=== PATIENT | female | born 1995 | race Two or more races ===

== ENCOUNTER 2017-11-29 20:59 | Emergency (ER) | payer OTHER ==
[2017-11-29 21:34] LABS: BILIRUBIN,URINE NEGATIVE (NEG); CLARITY,URINE CLEAR; COLOR,URINE YELLOW; GLUCOSE,URINE NEGATIVE (NEG); NITRITE,URINE NEGATIVE (NEG); PH,URINE 7.5; PROTEIN,URINE NEGATIVE (NEG-TRACE)
[2017-11-29 21:36] LABS: URINE HCG POC HCG NEGATIVE (Negative)
[2017-11-29 21:40] LABS: BACTERIA,URINE MODERATE /HPF (0-FEW); RBC,URINE 0 /HPF (0-2); SQUAMOUS EPITHELIAL CELL,UR FEW /LPF; WBC,URINE OCC /HPF (0-4)
[2017-11-29 21:41] LABS: AMPHETAMINE/METHAMPHETAMINE NEG (NEG); BARBITURATES NEG (NEG); BENZODIAZEPINES NEG (NEG); CANNABINOIDS NEG (NEG); COCAINE NEG (NEG); ETHANOL, URINE NEG (NEG); METHADONE NEG (NEG); OPIATES NEG (NEG); PHENCYCLIDINE NEG (NEG)
[2017-11-29 21:52] LABS: ADD MAN DIFF? NO; BASO # 0.1 x10^3/uL (0.0-0.2); BASO % 1 % (0-3); EOS # 0.1 x10^3/uL (0.0-0.7); EOS % 1 % (0-3); HEMATOCRIT 38.7 % (36.0-47.0); HEMOGLOBIN 12.7 g/dL (12.0-15.5); LYMPH # 2.2 x10^3/uL (1.0-4.8); LYMPH % 27 % (24-48); MEAN CORPUSCULAR HEMOGLOBIN 28 pg (25-35); MEAN CORPUSCULAR HGB CONC 33 g/dL (31-37); MEAN CORPUSCULAR VOLUME 86 fL (79-100); MONO # 0.5 x10^3/uL (0.0-1.1); MONO % 6 % (0-9); NEUT # 5.3 x10^3uL (1.8-7.7); NEUT % 65 % (31-73); PLATELET COUNT 264 x10^3/uL (140-400); RED BLOOD COUNT 4.49 x10^6/uL (3.50-5.40); RED CELL DISTRIBUTION WIDTH 13.2 % (11.5-14.5); WHITE BLOOD COUNT 8.1 x10^3/uL (4.0-11.0)
[2017-11-29 22:07] LABS: ANION GAP 7 (6-14); BLOOD UREA NITROGEN 9 mg/dL (7-20); BUN/CREATININE RATIO 11 (6-20); CALCIUM 8.7 mg/dL (8.5-10.1); CARBON DIOXIDE 27 mmol/L (21-32); CHLORIDE 105 mmol/L (98-107); CREATININE 0.8 mg/dL (0.6-1.0); GFR 91.4; GLUCOSE 82 mg/dL (70-99); POTASSIUM 3.4 mmol/L (3.5-5.1); SODIUM 139 mmol/L (136-145)
[2017-11-29 22:08] LABS: ETHANOL < 10 mg/dL (0-10)
[2017-11-29 22:11] LABS: ALBUMIN 3.6 g/dL (3.4-5.0); ALBUMIN/GLOBULIN RATIO 1.1 (1.0-1.7); ALK PHOS 48 U/L (46-116); ALT (SGPT) 18 U/L (14-59); AST (SGOT) 15 U/L (15-37); TOTAL BILIRUBIN 0.5 mg/dL (0.2-1.0); TOTAL PROTEIN 6.8 g/dL (6.4-8.2)
== END 2017-11-30 03:02 ==
LOC: ER 11-30 03:02
DX: R45.851 Suicidal ideations (principal); F41.9 Anxiety disorder, unspecified; F32.9 Major depressive disorder, single episode, unspecified
CPT/HCPCS: 36415; 80053; 80307; 81001; 81025; 85025; 87086; 99285-25; G0480

== ENCOUNTER 2019-01-22 00:29 | Emergency (ER) | payer OTHER ==
[~2019-01-22] VITALS: Ht 160 cm; Wt 43.1 kg
[2019-01-22] MEDS ORDERED: KETOROLAC 15 MG/ML VIAL. IV ONE (01:15)
[2019-01-22 01:18] LABS: BARBITURATES NEG (NEG); BASO % 1 % (0-3); BENZODIAZEPINES NEG (NEG); CANNABINOIDS NEG (NEG); COCAINE NEG (NEG); EOS # 0.1 x10^3/uL (0.0-0.7); EOS % 1 % (0-3); HEMATOCRIT 40.5 % (36.0-47.0); HEMOGLOBIN 13.3 g/dL (12.0-15.5); LYMPH # 2.9 x10^3/uL (1.0-4.8); LYMPH % 37 % (24-48); MEAN CORPUSCULAR HEMOGLOBIN 27 pg (25-35); MEAN CORPUSCULAR HGB CONC 33 g/dL (31-37); MEAN CORPUSCULAR VOLUME 84 fL (79-100); METHADONE NEG (NEG); MONO # 0.6 x10^3/uL (0.0-1.1); MONO % 7 % (0-9); NEUT # 4.2 x10^3uL (1.8-7.7); NEUT % 54 % (31-73); OPIATES NEG (NEG); PHENCYCLIDINE NEG (NEG); PLATELET COUNT 341 x10^3/uL (140-400); RED BLOOD COUNT 4.86 x10^6/uL (3.50-5.40); RED CELL DISTRIBUTION WIDTH 13.3 % (11.5-14.5); WHITE BLOOD COUNT 7.8 x10^3/uL (4.0-11.0)
[2019-01-22 01:25] LABS: PROTHROMBIN TIME PATIENT 12.7 SEC (11.7-14.0)
[2019-01-22 01:31] LABS: AMPHETAMINE/METHAMPHETAMINE NEG (NEG); D-DIMER 0.77 ug/mlFEU (0.00-0.50)
[2019-01-22 01:39] LABS: CALCIUM 9.9 mg/dL (8.5-10.1); CREATININE 0.8 mg/dL (0.6-1.0); GFR 90.5; POTASSIUM 3.1 mmol/L (3.5-5.1)
[2019-01-22 01:44] LABS: ALBUMIN/GLOBULIN RATIO 0.9 (1.0-1.7); TOTAL BILIRUBIN 0.3 mg/dL (0.2-1.0); TOTAL PROTEIN 8.3 g/dL (6.4-8.2)
[2019-01-22] MEDS ORDERED: POTASSIUM CHLORIDE 20 MEQ/15 ML ORAL LIQUID. PO ONE (02:00)
[2019-01-22] MEDS ORDERED: CONTRAST GIVEN. MC PRN (02:15)
[2019-01-22] MEDS ORDERED: IOHEXOL 350 MG/ML 100 ML VIAL. IV ONE (02:15)
--- NOTE | 2019-01-22 02:44 | RAD ---
INDICATION: eval for pe. ddimer elevated. tachycardic., OMNI 350, 75ml COMPARISON: Chest x-ray earlier same day TECHNIQUE: Axial CT images obtained through the chest. Intravenous contrast utilized. Angiogram 3D images processed per protocol. One or more of the following individualized dose reduction techniques were utilized for this examination: 1. Automated exposure control; 2. Adjustment of the mA and/or kV according to patient size; 3. Use of iterative reconstruction technique. FINDINGS: Motion limits this exam. There is some mild groundglass opacities. No evidence of pneumothorax. Soft tissue density anterior mediastinum which is commonly from residual thymus in a patient of this age. Mild scoliotic curvature of spine. Motion obscures portions of the ascending thoracic aorta without aneurysm seen in the descending thoracic aorta. No definite pulmonary embolus IMPRESSION: No definite pulmonary embolus. Mild groundglass opacities. Could be from hypoventilatory changes but mild edema or small airway inflammation can have this appearance. Electronically signed by: Mick Phan MD (01/22/2019 2:41 AM) [facility]
[2019-01-22 03:00] VITALS: BP 90/62
--- NOTE | 2019-01-22 03:15 | PHYS DOC ---
Past Medical History Past Medical History: Anxiety, Depression Past Surgical History: No Surgical History Alcohol Use: Occasionally Drug Use: None Adult General Chief Complaint Chief Complaint: CHEST PAIN HPI HPI Patient is a 23 year old f p/w chest pain. 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 Symptoms became worse tonight and she has had some numbness in her left arm so she came to the emergency room for evaluation she has been seen here in the past for anxiety Review of Systems Review of Systems Constitutional: Denies fever or chills [] Eyes: Denies change in visual acuity, redness, or eye pain [] Musculoskeletal: Denies back pain or joint pain [] Integument: Denies rash or skin lesions [] Neurologic: Denies headache, focal weakness or sensory changes [] Endocrine: Denies polyuria or polydipsia [] All other systems were reviewed and found to be within normal limits, except as documented in this note. Current Medications Current Medications Current Medications Medications (Trade) Dose Ordered Sig/Alen Start Time Stop Time Status Last Admin Dose Admin Info (CONTRAST GIVEN -- Rx MONITORING) 1 each PRN DAILY PRN 01/22/19 02:15 01/22/19 03:30 DC Iohexol (Omnipaque 350 Mg/ml) 75 ml 1X ONCE 01/22/19 02:15 01/22/19 02:16 DC 01/22/19 02:22 75 ML Ketorolac Tromethamine (Toradol 15mg Vial) 15 mg 1X ONCE 01/22/19 01:15 01/22/19 01:16 DC 01/22/19 01:07 15 MG Potassium Chloride (KCl Oral Soln) 40 meq 1X ONCE 01/22/19 02:00 01/22/19 02:01 DC 01/22/19 02:31 40 MEQ Allergies Allergies Allergies Coded Allergies Type Severity Reaction Last Updated Verified No Known Drug Allergies 12/14/15 No Physical Exam Physical Exam Constitutional: Well developed, well nourished, no acute distress, non-toxic appearance. [] HENT: Normocephalic, atraumatic, bilateral external ears normal, oropharynx moist, no oral exudates, nose normal. [] Eyes: PERRLA, EOMI, conjunctiva normal, no discharge. [] Neck: Normal range of motion, no tenderness, supple, no stridor. [] Cardiovascular:Heart rate regular rhythm, no murmur [] Lungs & Thorax: Bilateral breath sounds clear to auscultation []anterior chest wall tenderness palpation is noted Abdomen: Bowel sounds normal, soft, no tenderness, no masses, no pulsatile masses. [] Skin: Warm, dry, no erythema, no rash. [] Back: No tenderness, no CVA tenderness. [] Extremities: No tenderness, no cyanosis, no clubbing, ROM intact, no edema. [] Neurologic: Alert and oriented X 3, normal motor function, normal sensory function, no focal deficits noted. [] Psychologic: Affect normal, judgement normal, mood anxiety noted Current Patient Data Vital Signs Vital Signs Date Time Temp Pulse Resp B/P (MAP) Pulse Ox O2 Delivery O2 Flow Rate FiO2 01/22/19 03:00 80 19 90/62 (71) 98 Room Air 01/22/19 00:37 97.8 97.8 Lab Values Laboratory Tests Test 01/22/19 01:00 01/22/19 01:04 White Blood Count 7.8 x10^3/uL (4.0-11.0) Red Blood Count 4.86 x10^6/uL (3.50-5.40) Hemoglobin 13.3 g/dL (12.0-15.5) Hematocrit 40.5 % (36.0-47.0) Mean Corpuscular Volume 84 fL (79-100) Mean Corpuscular Hemoglobin 27 pg (25-35) Mean Corpuscular Hemoglobin Concent 33 g/dL (31-37) Red Cell Distribution Width 13.3 % (11.5-14.5) Platelet Count 341 x10^3/uL (140-400) Neutrophils (%) (Auto) 54 % (31-73) Lymphocytes (%) (Auto) 37 % (24-48) Monocytes (%) (Auto) 7 % (0-9) Eosinophils (%) (Auto) 1 % (0-3) Basophils (%) (Auto) 1 % (0-3) Neutrophils # (Auto) 4.2 x10^3uL (1.8-7.7) Lymphocytes # (Auto) 2.9 x10^3/uL (1.0-4.8) Monocytes # (Auto) 0.6 x10^3/uL (0.0-1.1) Eosinophils # (Auto) 0.1 x10^3/uL (0.0-0.7) Basophils # (Auto) 0.0 x10^3/uL (0.0-0.2) Prothrombin Time 12.7 SEC (11.7-14.0) Prothrombin Time INR 1.0 (0.8-1.1) D-Dimer (Leatha) 0.77 ug/mlFEU (0.00-0.50) H Sodium Level 142 mmol/L (136-145) Potassium Level 3.1 mmol/L (3.5-5.1) L Chloride Level 104 mmol/L (98-107) Carbon Dioxide Level 23 mmol/L (21-32) Anion Gap 15 (6-14) H Blood Urea Nitrogen 10 mg/dL (7-20) Creatinine 0.8 mg/dL (0.6-1.0) Estimated GFR (Cockcroft-Gault) 90.5 BUN/Creatinine Ratio 13 (6-20) Glucose Level 102 mg/dL (70-99) H Calcium Level 9.9 mg/dL (8.5-10.1) Total Bilirubin 0.3 mg/dL (0.2-1.0) Aspartate Amino Transferase (AST) 18 U/L (15-37) Alanine Aminotransferase (ALT) 17 U/L (14-59) Alkaline Phosphatase 65 U/L (46-116) Troponin I Quantitative < 0.017 ng/mL (0.000-0.055) Total Protein 8.3 g/dL (6.4-8.2) H Albumin 4.0 g/dL (3.4-5.0) Albumin/Globulin Ratio 0.9 (1.0-1.7) L Urine Opiates Screen Neg (NEG) Urine Methadone Screen Neg (NEG) Urine Barbiturates Neg (NEG) Urine Phencyclidine Screen Neg (NEG) Urine Amphetamine/Methamphetamine Neg (NEG) Urine Benzodiazepines Screen Neg (NEG) Urine Cocaine Screen Neg (NEG) Urine Cannabinoids Screen Neg (NEG) Urine Ethyl Alcohol Neg (NEG) POC Urine HCG, Qualitative Hcg negative (Negative) Laboratory Tests 01/22/19 01:00 Laboratory Tests 01/22/19 01:00 EKG EKG []EKG #1 shows sinus tachycardia rate of [address] changes with borderline ST depression in inferior leads as well as lead V3 could be related to also poor baseline somewhat difficult to interpret. EKG #2 done at 2:50 AM showed a sinus rhythm rate of 77 improved baseline nonspecific flattening anteriorly but no ST depression was identified on this EKG. Radiology/Procedures Radiology/Procedures [] Impressions: IMPRESSION: No definite pulmonary embolus. Mild groundglass opacities. Could be from hypoventilatory changes but mild edema or small airway inflammation can have this appearance. Electronically signed by: Beth Phan MD (01/22/2019 2:41 AM) [facility] DICTATED and SIGNED BY: BETH PHAN MD DATE: 01/22/19240 Course & Med Decision Making Course & Med Decision Making Pertinent Labs and Imaging studies reviewed. (See chart for details) []Well appearing 23-year-old female appears younger than stated age presenting with chest pain shortness of breath was tachycardic on arrival had some borderline EKG changes we repeated that they got better D-dimer performed due to the first EKG as well as the mild tachycardia unfortunately was elevated we did a PE study showed no PE there was some ground glass opacities given her 3 weeks of cough productive for some antibiotics that can be contributing to her chest tightness Reassurance was provided potassium was repleted repeat EKG did look much better perhaps it was a poor baseline on the first EKG. Questions were answered drug screen was negative Dragon Disclaimer Dragon Disclaimer This electronic medical record was generated, in whole or in part, using a voice recognition dictation system. Departure Departure Impression: Primary Impression: Chest pain Disposition: HOME, SELF-CARE Condition: STABLE Referrals: KYLER BURTON MD (PCP) Scripts Doxycycline Hyclate (DOXYCYCLINE HYCLATE) 100 Mg Tablet 1 TAB PO BID, #14 TAB Prov: JORJE BENZ MD 01/22/19 JORJE BENZ MD Jan 22, 2019 03:15
[2019-01-22] MEDS ORDERED: DOXY100T PO (03:16)
--- NOTE | 2019-01-22 07:47 | RAD ---
PORTABLE CHEST 1V History: CHEST PAIN Comparison: None. Findings: AP upright view of the chest is submitted. There is no infiltrate, pleural fluid, pneumothorax. Heart size is within normal limits. Impression: 1. No acute radiographic abnormality is identified. Electronically signed by: Yonatan Donahue MD (01/22/2019 7:44 AM) [facility]
--- NOTE | 2019-01-22 10:10 | EKG ---
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
--- NOTE | 2019-01-22 10:54 | EKG ---
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
== END 2019-01-22 03:28 | disposition home or self-care (01) ==
LOC: ER 00:29
DX: R07.89 Other chest pain (principal); R06.02 Shortness of breath; R05 Cough; F32.9 Major depressive disorder, single episode, unspecified; F41.9 Anxiety disorder, unspecified
CPT/HCPCS: 36415; 71045; 71275; 80053; 80307; 81025; 84484; 85025; 85379; 85610; 93005; 96374; 99284; J1885; Q9967